=== PATIENT | female | born 1950 | race Caucasian/White ===

== ENCOUNTER 2021-04-23 07:21 | Day surgery (SDC) | payer OTHER ==
[2021-04-22 13:57] LABS: Absolute Lymphocytes (CBC) 3.6 K/uL (0.7-4.9); Basophils % 0.7 % (0-1.3); Hematocrit 42.4 % (36.0-45.0); Lymphocytes % 32.5 % (15.3-44.8); MPV 7.9 fL (7.6-11.3); RBC Red Blood Cell Count 5.02 M/uL (3.86-4.86)
[2021-04-22 14:17] LABS: Albumin 3.7 g/dL (3.4-5.0); Bilirubin Direct 0.1 mg/dL (0-0.2); Bilirubin Total 0.5 mg/dL (0.2-1.0); Potassium 4.4 mmol/L (3.5-5.1)
[2021-04-23] MEDS ORDERED: Ringers Lactate 1,000 ML IV ONE (08:08)
[2021-04-23] MEDS ORDERED: FENTANYL CITR 100 MCG/2 ML ONE (08:25)
[2021-04-23] MEDS ORDERED: propofoL 200 MG/20 ML VIAL IV ONE (08:25)
[2021-04-23] MEDS ORDERED: LIDOCAINE 1% MPF 5 ML VIAL ONE (08:26)
[2021-04-23] MEDS ORDERED: MIDAZOLAM HCL 2 MG/2 ML INJ ONE (08:26)
[2021-04-23] MEDS ORDERED: ONDANSETRON 4 MG/2 ML VIAL ONE (08:27)
[2021-04-23] MEDS ORDERED: ROCURONIUM 50 MG/5 ML VIAL IV ONE (08:27)
[2021-04-23] MEDS: CEFOXITIN/SWI 1gm 1 GM/10 ML SYR ONE ×2 (08:42→08:50)
[2021-04-23] MEDS ORDERED: dexAMETHasone 10 MG/ML VIAL ONE (08:59)
[2021-04-23] MEDS ORDERED: EPHEDRINE SULF 50 MG/ML VIAL ONE (09:16)
[2021-04-23] MEDS ORDERED: KETOROLAC 30 MG/ML INJ ONE (09:39)
[2021-04-23] MEDS ORDERED: GLYCOPYRROLATE 0.2 MG/ML SYR ONE (09:42)
[2021-04-23] MEDS ORDERED: NEOSTIGMINE 1 MG/ML -5 ML ONE (09:43)
--- NOTE | 2021-04-23 09:55 | P.BOP ---
Preoperative diagnosis: RUQ abd pain, RUQ abd subQ mass Postoperative diagnosis: Same plus intrabdominal adhesions, Umbilical hernia Primary procedure: 1. Dignostic laparoscopy 2. LAp lysis of adhesions, Secondary procedure: 3. Repair of umbilical hernia, 4. Excisional bx tender RUQ subQ mass Music Intern: YULY BARGER (OUTREACH ANALYST) Estimated blood loss: <10cc Specimen: hernia sac, subQ mass Findings: intrabd adhesions, subq mass, incarcerated omentum in hernia Anesthesia: General Complications: None Transferred to: Recovery Room Condition: Good
[2021-04-23] MEDS ORDERED: CODEINE 30MG/APAP 300MG TAB ONE (11:38)
[2021-04-23 13:48] VITALS: BP 145/56; TEMP 97.6; O2SAT 100
--- NOTE | 2021-04-25 20:52 | OP ---
Surgeon: Mario Arreola MD Rolled Seat Trimmer: Aidee Jennings. Preoperative Diagnoses: Right upper quadrant abdominal pain, right upper quadrant abdominal tender s ubcutaneous mass. Postoperative Diagnoses: Right upper quadrant abdominal pain, right upper quadrant abdominal tender subcutaneous mass plus intraabdominal adhesions and umbilical hernia. Procedures: 1.Diagnostic laparoscopy. 2.Laparoscopic lysis of adhesions. 3.Repair of umbilical hernia. 4.Excisional biopsy of tender right upper quadrant subcutaneous mass. Estimated Blood Loss: Less than 10 cc. Specimen: Hernia sac and subcutaneous mass. Findings: The patient has multiple suspicious etiologies for her pain. She has this tender subcutan eous mass, but she feels the pain inside. So even though we removed the subcutaneous mass when we di d the diagnostic lap, we noticed extensive adhesions in the upper abdomen. We also found the patient to have umbilical hernia so she wants all of them repaired in advance if found and that is what we d id. Anesthesia: General plus local. Indication: This is the case of a 71-year-old patient with chronic abdominal pain, she feels in the epigastric and right upper quadrant area. She has some lumps on the right upper abdomen near subcost al region, but when she feels that area even though it is tender, it is not the pain that she experie nces in the right upper quadrant. She had an extensive workup, extensive visits to the ER and primar y doctor, extensive x-rays, and at that moment, she was offered diagnostic laparoscopy, but at the s tyson time she wants the mass removed. The benefits, alternatives, and risks of diagnostic laparoscopy , possible lysis of adhesions and excisional biopsy of right upper quadrant tender subcutaneous mass were fully explained, which include, but not limited to infection, bleeding, damage to adjacent struc tures, anesthesia complication, recurrence, WA, and even . She also understands this may not re lieve any symptoms. She might need more than one surgical intervention. She understood and signed a consent. Procedure In Detail: The patient was brought to the operating room, placed in supine position. Anes thesia was done without complication. A time-out was called. Abdomen was prepped and draped in a st erile fashion. First incision was done in the infraumbilical region. When we went through the incis ion, we noticed the patient to have an incarcerated hernia with omentum, so the hernia sac was opened . The omentum was released with adhesions and released back into the abdominal cavity. Hernia sac w as removed. Vicryl #1 was placed inside the fascia. Kinjal trocar was carefully introduced. No ble eding was obtained. At that moment, we directed our attention to the right upper quadrant. Once aga in in that area, we noticed adhesions present where the patient was pinpoint tender. So we proceeded to place 5 mm trocars under direct visualization, and then using the LigaSure, we proceeded with the lysis of adhesions. We also found some adhesions in the left lower quadrant. That was also removed . The small bowel and large bowel, we did not see any extraluminal masses. Once we had the adhesion s under control, we looked for hemostasis and there was no bleeding. Stomach was soft and compressib le. Liver anteriorly and extracapsular with no masses seen. No hernia was seen other than the herni a sac on the umbilical area. At that moment, I proceeded to remove the trocars under direct visualiz ation, deflated pneumoperitoneum, closed the umbilical hernia with #1 Vicryl, irrigated the subcutane ous tissues, closed with 3-0 chromic and skin approximated. Sponge count and instrument counts were correct. At that moment, I proceeded to make a right upper quadrant incision. It is that where the lumps were felt because the patient helped me in the recovery room to thien them. An incision was mad e in that area. We removed the lump in that region, goes all the way down to costal area but does no t penetrate the ribs. Mass was excised. Then, after that, we proceeded to close the areas with a co mbination of 3-0 chromic and then approximated the skin. No other masses were palpated. The patient tolerated the procedure well. The patient was sent to Recovery in stable condition. Discharge Summary: Diagnoses: Right upper quadrant abdominal pain, right upper quadrant abdominal subcutaneous mass, in traabdominal adhesions, umbilical hernia. Procedure: Diagnostic laparoscopy, lysis of adhesions, repair of umbilical hernia and excisional bio psy of tender right upper quadrant subcutaneous mass. Disposition: Home. Activity: As tolerated. No heavy lifting. Plan: Follow up in my office in 1 week. Call for appointment at [phone]. Keep area dry for 48 steve rs, then may shower. Medications: See orders. HM/MODL Voice ID: [id number] Report ID: [id number]
== END 2021-04-23 12:34 | disposition home or self-care (01) ==
LOC: OR 07:21
PROVIDERS: ATTEND Surgery
PROC: 0DNU4ZZ Release Omentum, Percutaneous Endoscopic Approach (ICD-10-PCS; 2021-04-23)
PROC: 0JB80ZZ Excision of Abdomen Subcutaneous Tissue and Fascia, Open Approach (ICD-10-PCS; 2021-04-23)
PROC: 0WQF4ZZ Repair Abdominal Wall, Percutaneous Endoscopic Approach (ICD-10-PCS; principal; 2021-04-23 08:45)
DX: K42.9 Umbilical hernia without obstruction or gangrene (principal); D17.5 Benign lipomatous neoplasm of intra-abdominal organs; K66.0 Peritoneal adhesions (postprocedural) (postinfection)
CPT/HCPCS: 85025; 80048; 36415; 82150; 80076; 88302; 88304; 49329; 11406; 49653; J2704; J2250; J3010; J1100; J2710; J7120; J2405